=== PATIENT | female | born 1950 | race Caucasian/White ===

== ENCOUNTER → 2016-06-26 | Outpatient (CLI) | payer MEDICARE, BC ==
[~2016-06-26] MED LIST: AMLO2.5T2 PO; CALC-176 PO; CHOL200031 PO; ESTR-29 TD; FEXO60TA20 PO; FLUT9.9S NASAL; LIDOCAINE PATCH; LOSA50TA6 PO; MELO-216 PO; MONT5TAB12 PO; [UNRECOGNIZED DRUG - CODE] MM
== END | disposition home or self-care (01) ==
LOC: HKI 10:57
PROVIDERS: ATTEND Orthopaedic Surgery
DX: Z01.818 Encounter for other preprocedural examination (principal); I10 Essential (primary) hypertension; Z88.6 Allergy status to analgesic agent; Z88.1 Allergy status to other antibiotic agents; M25.562 Pain in left knee
CPT/HCPCS: 87081; G0463

== ENCOUNTER 2016-07-04 07:24 | Day surgery (SDC) | payer MEDICARE, BC ==
[2016-07-03 11:58] VITALS: Ht 152.4 cm; Wt 59.9 kg
[2016-07-04] VITALS (16 sets, daily range): BP systolic 111–133; BP diastolic 49–63; PULSE 60–82; RESP 12–18
[~2016-07-04] VITALS: Ht 152.4 cm; Wt 59.9 kg
[~2016-07-04 07:24] MED LIST changes: -AMLO2.5T2 PO; -CALC-176 PO; +CEFAZOLIN 1 GM INJ ONE; +CELECOXIB 400 MG PO X1 DOSE PO SCH; -CHOL200031 PO; -ESTR-29 TD; -FEXO60TA20 PO; -FLUT9.9S NASAL; +LACTATED RINGER'S 1,000 ML IV SCH; -LIDOCAINE PATCH; -LOSA50TA6 PO; -MELO-216 PO; -MONT5TAB12 PO; +PREGABALIN 300 MG PO X1 PO SCH; +VANCOMYCIN 1 GM/NS 250 ML X1 BEFORE INCISION IVPB SCH; -[UNRECOGNIZED DRUG - CODE] MM; +traMADOL 50 MG TAB X 1 DOSE PO SCH
[2016-07-04] MEDS ORDERED: CALC-176 PO (09:01)
[2016-07-04] MEDS ORDERED: [UNRECOGNIZED DRUG - CODE] MM (09:01)
[2016-07-04] MEDS ORDERED: FEXO60TA20 PO (09:01)
[2016-07-04] MEDS ORDERED: ESTR-29 TD (09:01)
[2016-07-04] MEDS ORDERED: FLUT9.9S NASAL (09:01)
[2016-07-04] MEDS ORDERED: CHOL200031 PO (09:01)
[2016-07-04] MEDS ORDERED: MONT5TAB12 PO (09:01)
[2016-07-04] MEDS ORDERED: MELO-216 PO (09:01)
[2016-07-04] MEDS ORDERED: LOSA50TA6 PO (09:01)
[2016-07-04] MEDS ORDERED: LIDOCAINE PATCH (09:01)
[2016-07-04] MEDS ORDERED: AMLO2.5T2 PO (09:01)
[2016-07-04] MEDS ORDERED: morphine SULFATE/PF (10 MG/10 ML) INJ ONE (09:16)
[2016-07-04] MEDS ORDERED: KETOROLAC 30 MG INJ ONE ×2 (09:16→10:42)
[2016-07-04] MEDS ORDERED: LIDOCAINE 1%/EPI 30 ML INJ ONE (09:16)
[2016-07-04] MEDS ORDERED: ACETAMINOPHEN 1000MG/100ML IV 100 ML ONE (09:18)
[2016-07-04] MEDS ORDERED: FENTAnyl 50 MCG/ML VIAL ONE (09:18)
[2016-07-04] MEDS ORDERED: PROPOFOL 20 ML ONE (09:18)
--- NOTE | 2016-07-04 10:05 | HPN ---
Date/Time of Note Date/Time of Note DATE: 07/04/16 TIME: 10:05 Interval H&P Admission Note Pt. seen H&P reviewed: No system changes No changes from H&P by Dr. Lainez on 06/22/16 JANICE ARANGO MD Jul 04, 2016 10:05
[2016-07-04] MEDS ORDERED: PHENYLephrine (100 MCG/ML) 5ML SYG ONE (10:16)
[2016-07-04] MEDS: ROPIVACAINE 0.5 % 30 ML VIAL ONE ×2 (10:22→11:05)
[2016-07-04] MEDS ORDERED: LABETALOL HCL 20MG INJ ONE (10:38)
[2016-07-04] MEDS ORDERED: DEXAMETHASONE 4 MG/ML 1 ML INJ ONE (10:42)
[2016-07-04] MEDS ORDERED: FAMOTIDINE 20 MG INJ ONE (10:42)
[2016-07-04] MEDS ORDERED: METOCLOPRAMIDE 10 MG INJ ONE (10:42)
[2016-07-04] MEDS ORDERED: ONDANSETRON 4 MG INJ ONE (10:42)
[2016-07-04] MEDS ORDERED: DIPHENHYDRAMINE 50 MG INJ IV PRN (11:00)
[2016-07-04] MEDS ORDERED: LABETALOL HCL 20MG INJ IV PRN (11:00)
[2016-07-04] MEDS ORDERED: EPHEDrine SULFATE 50 MG/5 ML SYG IV PRN (11:00)
[2016-07-04] MEDS ORDERED: ONDANSETRON 4 MG INJ IV PRN (11:00)
[2016-07-04] MEDS ORDERED: FENTAnyl 50 MCG/ML VIAL IV PRN ×2 (11:00)
[2016-07-04] MEDS ORDERED: morphine (1 MG/ML) 10ML SYRINGE IV PRN ×2 (11:00)
[2016-07-04] MEDS ORDERED: hydrALAzine 20 MG INJ IV PRN (11:00)
--- NOTE | 2016-07-04 11:26 | OPPN ---
Date/Time of Note Date/Time of Note DATE: 07/04/16 TIME: 11:25 Operative/Procedure Note Dictation # [id number] Pre-Operative Diagnosis Left Knee MM and LM Tears Post-Operative Diagnosis Same Procedure Left Knee A/S and partial MM and LM Surgeon: JANICE ARANGO MD Anesthesiologist: MARYELLEN ERAZO MD Findings MM and LM Tears, Grade IV CM MTP Blood Usage/Administration None Implants/Grafts: Not applicable Estimated blood loss: minimal Drains: Not applicable Specimens: Not Applicable Complications: None Anesthesia type: general JANICE ARANGO MD Jul 04, 2016 11:26
--- NOTE | 2016-07-04 12:54 | OPR ---
DATE OF OPERATION: 07/04/2016 PREOPERATIVE DIAGNOSIS: Left knee medial and lateral meniscal tears. POSTOPERATIVE DIAGNOSIS: Left knee medial and lateral meniscal tears. OPERATION PERFORMED: Left knee arthroscopy with partial medial and lateral meniscectomies. SURGEON: Janice Hickman MD TRAINING GENERALIST: ABBY Finley ANESTHESIOLOGIST: Dr. Hampton TOURNIQUET TIME: 0 minutes. ESTIMATED BLOOD LOSS: Scant. INTRAVENOUS FLUIDS: 800 mL crystalloid. SPECIMENS: None. DRAINS: None. COMPLICATIONS: None. DISPOSITION: The patient tolerated the procedure well and was taken to the recovery room in stable condition. INDICATIONS: The patient is a 66-year-old woman who has had worsening pain in the left knee with me chanical symptoms of catching and popping. An MRI demonstrated medial and lateral meniscal tears. I felt she would benefit from a knee arthroscopy and partial medial and lateral meniscectomies. The risks, benefits, alternatives of the procedure were explained in detail to the patient. I explaine d the risks to include but not be limited to bleeding, infection, pain, stiffness, neurovascular inj ury, possible numbness, weakness, and/or paralysis anywhere from the knee down to the toes, fracture , ligamentous injury, need for additional future surgery including possible future total knee arthro plasty, wound healing problems, blood clots, pulmonary embolism, and anesthetic complications such a s heart attack, stroke, GI bleed, pneumonia and/or . Ample time was allowed for the patient to ask questions, all of which were addressed and answered. She understood the risks involved and wis hed to proceed. Informed consent was signed prior to the procedure. DESCRIPTION OF PROCEDURE: The left knee was initialed with a marking pen in the preoperative holdin g area to identify the correct operative site. The patient was then brought to the operating room a nd transferred [facility] to the operating table where she was anesthetized and intuba aram. A timeout was performed to confirm the left side was the correct operative site. She was give n 1 gram of vancomycin and 1 gram of Ancef within 1 hour prior to the incision. A tourniquet was pl aced on the left proximal thigh. The superolateral aspect of the knee was prepped with Betadine and then injected 30 mL of 0.5% ropivacaine into the knee joint. The entire left knee and lower extrem ity were prepped and draped in usual sterile fashion. Standard arthroscopic portal incisions were made, 1 inferolateral and 1 inferomedial. The arthrosco pe was introduced into the inferolateral portal and the arthroscopy initiated. Suprapatellar pouch was free of loose bodies and synovitis. The undersurface of the patella looked healthy with no sign ificant degenerative changes. The patella tracked well with no tilt or subluxation. The trochlear groove looked healthy with no significant degenerative changes. The medial and lateral gutters were inspected and free of loose bodies and synovitis. The medial compartment was inspected. There was an extensive horizontal cleavage tear of the posterior horn and body of the medial meniscus. 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 The medial femoral condyle had some mild grade III chondromalacia. The meniscal tear was debrided back to a stable edge with a combina tion of shaver and Arthrocare wand. It was probed and was stable. The inner trochlear notch was in spected. ACL and PCL were in normal position, no evidence of tearing. The lateral compartment was inspected and there was a free edge tear of the body and posterior horn of the lateral meniscus that was debrided back to a stable edge with a combination of shaver and Arthrocare wand. There was a s mall area of grade III chondromalacia of the lateral tibial plateau. The lateral femoral condyle lo oked healthy with no degenerative changes. At this point, the knee was irrigated through the arthro scope until the egress of fluid was free of meniscal fragments and blood. The instruments were megan luciano. The knee was injected with a mixture of 0.5% ropivacaine, 4 mg Duramorph, and 30 mg Toradol. The portal incisions were closed with interrupted 3-0 Monocryl and 3-0 Prolene in a vertical mattres s fashion. Skin edges were sealed with Dermabond. The wounds were covered with Adaptic, 4x4s and w rapped with sterile cast padding and Julio Cesar wrap. The patient was awakened, extubated, and taken to [facility] recovery room in stable condition. Dictated By: JANICE SPARKS/AI Conf#: [id number] DID#: [id number]
[2016-07-05] MEDS ORDERED: AMLODIPINE 2.5 MG TAB PO SCH (09:00)
== END 2016-07-04 14:40 | disposition home or self-care (01) ==
LOC: SDS 07:24
PROVIDERS: ATTEND Orthopaedic Surgery
DX: M23.204 Derangement of unspecified medial meniscus due to old tear or injury, left knee (principal); M23.201 Derangement of unspecified lateral meniscus due to old tear or injury, left knee; I10 Essential (primary) hypertension; E03.9 Hypothyroidism, unspecified; Z88.5 Allergy status to narcotic agent; Z88.1 Allergy status to other antibiotic agents
CPT/HCPCS: 29880; J0131; J0690; J1100; J1885; J2274; J2370; J2795; J3010; J3370; 87081; J2405; J2765

== ENCOUNTER → 2016-07-15 | Outpatient (CLI) | payer MEDICARE, BC ==
[~2016-07-15] MED LIST changes: +AMLO2.5T2 PO; +CALC-176 PO; -CEFAZOLIN 1 GM INJ ONE; -CELECOXIB 400 MG PO X1 DOSE PO SCH; +CHOL200031 PO; +ESTR-29 TD; +FEXO60TA20 PO; +FLUT9.9S NASAL; -LACTATED RINGER'S 1,000 ML IV SCH; +LIDOCAINE PATCH; +LOSA50TA6 PO; +MELO-216 PO; +MONT5TAB12 PO; -PREGABALIN 300 MG PO X1 PO SCH; -VANCOMYCIN 1 GM/NS 250 ML X1 BEFORE INCISION IVPB SCH; +[UNRECOGNIZED DRUG - CODE] MM; -traMADOL 50 MG TAB X 1 DOSE PO SCH
--- NOTE | 2016-07-16 06:02 | HKNOTE ---
DATE OF SERVICE: 07/15/2016 INTERVAL HISTORY: The patient presents today for a followup evaluation on her left knee. She is now 11 days status post left knee arthroscopy with medial and lateral meniscectomy. She is doing satisfactory overall. She is having some mild residual pain, predominantly at nighttime. She denies any fevers or chills. She has been ambulating up and down the stairs somewhat excessively. She denies any swelling. She has not begun physical therapy. She presents today for her first postoperative evaluation. PHYSICAL EXAMINATION: On exam today she is alert and oriented x4, and in no acute distress. She walks with a normal gait. Her incisions are clean, dry, and intact. Stitches are in place. Range of motion is 0-125 degrees. Varus and valgus forces are stable. There is no erythema or warmth. Compartments are soft. She is neurovascularly intact distally. IMAGING: None done today. ASSESSMENT: Eleven days status post left knee arthroscopy with partial medial and lateral meniscectomy. PLAN: 1. Begin outpatient physical therapy. 2. Sutures removed, Steri-Strips applied. 3. Avoid overdoing it as this may exacerbate her knee pain. 4. Ice at the end of the day. 5. Follow up in 4 weeks for repeat evaluation. Dictated By: LORI MORA for JANICE ROBB/AI Conf#: [id number] DID#: [id number] MTDD
== END | disposition home or self-care (01) ==
LOC: HKI 11:26
PROVIDERS: ATTEND Orthopaedic Surgery
DX: Z47.89 Encounter for other orthopedic aftercare (principal)
CPT/HCPCS: G0463

== ENCOUNTER → 2016-08-14 | Outpatient (CLI) | payer MEDICARE, BC | END | disposition home or self-care (01) | LOC: HKI 11:29 | PROVIDERS: ATTEND Orthopaedic Surgery | DX: S83.232D Complex tear of medial meniscus, current injury, left knee, subsequent encounter (principal); S83.262D Peripheral tear of lateral meniscus, current injury, left knee, subsequent encounter ==